=== PATIENT | male | born 1945 | race Caucasian/White ===

== ENCOUNTER 2019-09-09 09:05 | Emergency (ER) | payer MEDICARE, OTHER ==
[~2019-09-09] VITALS: Ht 175.2 cm; Wt 91.8 kg
--- OUTSIDE RECORDS SUMMARY | 2019-09-09 09:21 | XMS REPORT | Continuity of Care Document ---
Author Organization Unknown Address Unknown Phone Unavailable Allergies There is no data. Medications There is no data. Problems There is no data. Procedures There is no data. Results Test Result Range A1C - 12/02/18 08:18 HEMOGLOBIN A1c 5.9 % of total Hgb <5.7 A1C - 07/07/19 12:10 HEMOGLOBIN A1c 5.9 % of total Hgb <5.7 CMP - 08/17/19 08:23 GLUCOSE 94 mg/dL 65-99 UREA NITROGEN (BUN) 25 mg/dL 7-25 CREATININE 1.44 mg/dL 0.70-1.18 eGFR NON-AFR. CONGOLESE 48 mL/min/1.73m2 > OR = 60 eGFR 56 mL/min/1.73m2 > OR = 60 BUN/CREATININE RATIO 17 (calc) 6-22 SODIUM 134 mmol/L 135-146 POTASSIUM 4.3 mmol/L 3.5-5.3 CHLORIDE 98 mmol/L 98-110 CARBON DIOXIDE 27 mmol/L 20-32 CALCIUM 9.6 mg/dL 8.6-10.3 PROTEIN, TOTAL 7.0 g/dL 6.1-8.1 ALBUMIN 4.1 g/dL 3.6-5.1 GLOBULIN 2.9 g/dL (calc) 1.9-3.7 ALBUMIN/GLOBULIN RATIO 1.4 (calc) 1.0-2. 5 BILIRUBIN, TOTAL 1.8 mg/dL 0.2-1.2 ALKALINE PHOSPHATASE 71 U/L 35-144 AST 17 U/L 10-35 ALT 15 U/L 9-46 Encounters ACCT No. Visit Date/Time Discharge Status Pt. Type Provider Facility Loc./Unit Complaint [id number] 08/17/2019 07:30:00 08/17/2019 23:59: 59 CLS Outpatient SELF, THONG GRADY JENNA CAMPOS [facility] [id number] 08/17/2019 07:30:00 Document Registration [id number] 07/07/2019 10:30:00 Document Registration [id number] 12/02/2018 08:00:00 Document Registration
--- NOTE | 2019-09-09 09:31 | ED General ---
General Chief Complaint: Dizziness/Syncope Stated Complaint: PRE-SYNCOPAL EPISODE History of Present Illness Date Seen by Provider: Sep 09, 2019 Time Seen by Provider: 09:20 Initial Comments 73-year-old male presents with "dizziness" patient reports since around 5 AM this morning he is had 4 episodes of dizziness. They felt like he was in a pass out. Patient denies any fevers chills, ringing of his ears, chest pain. The episodes are brief. He has never had anything like this before. He does not have any focal deficits when they present. He does report his vision gets a little off during the episodes. No nausea vomiting. Allergies and Home Medications Allergies Coded Allergies: meperidine (Verified Allergy, Unknown, 09/09/19) Home Medications Nitrofurantoin Macrocrystal 100 Mg Capsule, 100 MG PO BID Prescribed by: NIXON LUGO on 09/09/19 1109 Patient Home Medication List Home Medication List Reviewed: Yes Review of Systems Review of Systems Constitutional: No chills; dizziness; No fever Respiratory: No cough, No short of breath Cardiovascular: No chest pain, No palpitations Gastrointestinal: No diarrhea, No nausea, No vomiting Musculoskeletal: no symptoms reported Skin: no symptoms reported Psychiatric/Neurological: No Symptoms Reported Past Zrkyadw-Jjbatl-Tfnykk Hx Past Med/Social Hx: Reviewed Nursing Past Med/Soc Hx Patient Social History Recent Foreign Travel: No Contact w/Someone Who Travel: No Physical Exam Vital Signs Vital Signs - First Documented 09/09/19 09:31 Temp 36.1 Pulse 60 Resp 20 B/P (MAP) 139/70 (93) Pulse Ox 96 O2 Delivery Room Air Capillary Refill : Height, Weight, BMI Height: '" Weight: lbs. oz. kg; BMI Method: General Appearance: No Apparent Distress, WD/WN HEENT: PERRL/EOMI, Normal ENT Inspection Neck: Non Tender, Supple Respiratory: Chest Non Tender, Lungs Clear, Normal Breath Sounds Cardiovascular: Regular Rate, Rhythm, No Edema Gastrointestinal: Non Tender, Soft Back: Normal Inspection, No CVA Tenderness, No Vertebral Tenderness Neurologic/Psychiatric: Alert, No Motor/Sensory Deficits, Normal Mood/Affect, it telecom technician II-XII Norm as Tested Skin: Normal Color, Warm/Dry Lymphatic: No Adenopathy Progress/Results/Core Measures Suspected Sepsis SIRS Temperature: Pulse: Respiratory Rate: Laboratory Tests 09/09/19 09:25: White Blood Count 7.2 Blood Pressure / Mean: Laboratory Tests 09/09/19 09:25: Creatinine 1.32H, Platelet Count 127L, Total Bilirubin 1.4H Results/Orders Lab Results Laboratory Tests Test 09/09/19 09:25 09/09/19 10:05 Range/Units White Blood Count 7.2 4.3-11.0 10^3/uL Red Blood Count 3.56 L 4.35-5.85 10^6/uL Hemoglobin 10.5 L 13.3-17.7 G/DL Hematocrit 32 L 40-54 % Mean Corpuscular Volume 90 80-99 FL Mean Corpuscular Hemoglobin 29 25-34 PG Mean Corpuscular Hemoglobin Concent 33 32-36 G/DL Red Cell Distribution Width 12.4 10.0-14.5 % Platelet Count 127 L 130-400 10^3/uL Mean Platelet Volume 11.6 H 7.4-10.4 FL Neutrophils (%) (Auto) 69 42-75 % Lymphocytes (%) (Auto) 18 12-44 % Monocytes (%) (Auto) 10 0-12 % Eosinophils (%) (Auto) 2 0-10 % Basophils (%) (Auto) 1 0-10 % Neutrophils # (Auto) 4.9 1.8-7.8 X 10^3 Lymphocytes # (Auto) 1.3 1.0-4.0 X 10^3 Monocytes # (Auto) 0.7 0.0-1.0 X 10^3 Eosinophils # (Auto) 0.1 0.0-0.3 10^3/uL Basophils # (Auto) 0.1 0.0-0.1 10^3/uL Sodium Level 135 135-145 MMOL/L Potassium Level 4.0 3.6-5.0 MMOL/L Chloride Level 97 L 98-107 MMOL/L Carbon Dioxide Level 22 21-32 MMOL/L Anion Gap 16 H 5-14 MMOL/L Blood Urea Nitrogen 29 H 7-18 MG/DL Creatinine 1.32 H 0.60-1.30 MG/DL Estimat Glomerular Filtration Rate 53 BUN/Creatinine Ratio 22 Glucose Level 116 H 70-105 MG/DL Calcium Level 8.9 8.5-10.1 MG/DL Corrected Calcium 9.0 8.5-10.1 MG/DL Total Bilirubin 1.4 H 0.1-1.0 MG/DL Aspartate Amino Transf (AST/SGOT) 25 5-34 U/L Alanine Aminotransferase (ALT/SGPT) 17 0-55 U/L Alkaline Phosphatase 70 40-136 U/L Troponin I < 0.30 <0.30 NG/ML Total Protein 7.2 6.4-8.2 GM/DL Albumin 3.9 3.2-4.5 GM/DL Urine Color YELLOW Urine Clarity CLEAR Urine pH 7.5 5-9 Urine Specific [place] 1.020 1.016-1.022 Urine Protein NEGATIVE NEGATIVE Urine Glucose (UA) NEGATIVE NEGATIVE Urine Ketones NEGATIVE NEGATIVE Urine Nitrite NEGATIVE NEGATIVE Urine Bilirubin NEGATIVE NEGATIVE Urine Urobilinogen 1.0 < = 1.0 MG/DL Urine Leukocyte Esterase TRACE H NEGATIVE Urine RBC (Auto) NEGATIVE NEGATIVE Urine RBC 0-2 /HPF Urine WBC 5-10 H /HPF Urine Squamous Epithelial Cells 0-2 /HPF Urine Crystals NONE /LPF Urine Bacteria NEGATIVE /HPF Urine Casts NONE /LPF Urine Mucus SMALL H /LPF Urine Culture Indicated YES My Orders Orders - LUGO,NIXON L DO Cbc With Automated Diff (09/09/19:32) Protime With Inr (09/09/19:32) Partial Thromboplastin Time (09/09/19:32) Comprehensive Metabolic Panel (09/09/19:32) Troponin I Fs (09/09/19:32) Ua Culture If Indicated (09/09/19:32) Chest 1 View Ap/Pa Only (09/09/19:32) Ekg Tracing (09/09/19:32) Accucheck Stat ONCE (09/09/19:32) Ed Iv/Invasive Line Start (09/09/19 09:32) Vital Signs Stroke Patient Q15M (09/09/19 09:32) Ct Head Wo-R/O Stroke (09/09/19 09:32) Intake & Output 06,14,22 (09/09/19 09:32) Monitor-Rhythm Ecg Trace Only (09/09/19 09:32) Dysphagia Screening Tool (09/09/19 09:32) Ed Iv/Invasive Line Start (09/09/19 10:03) Ns Iv 500 Ml (Sodium Chloride 0.9%) (3/18/20 10:03) Urine Culture (09/09/19 10:05) Medications Given in ED Current Medications Medications Dose Ordered Sig/José Miguel Route Start Time Stop Time Status Last Admin Dose Admin Sodium Chloride 500 ml @ 0 mls/hr Q0M ONCE IV 09/09/19 10:03 09/09/19 10:04 DC 09/09/19 10:12 0 MLS/HR Vital Signs/I&O 09/09/19 09:31 Temp 36.1 Pulse 60 Resp 20 B/P (MAP) 139/70 (93) Pulse Ox 96 O2 Delivery Room Air Capillary Refill : Progress Note : Time: 11:11 Progress Note Patient with some mild dehydration and urine consistent with a urinary tract infection. I did discuss with family and patient concerns for a possible cerebellar stroke. I did discuss with them are rare but they do present with just dizziness. Patient was offered further workup and admission. At this time he chose to treat the urinary tract infection will drink plenty of fluids. If symptoms continue to worsen or return they will return to the ER for further evaluation. I did discuss with him the need to follow-up with their outpatient primary care provider for patient TIA/stroke workup as a precaution which they voiced understanding. He will be discharged home in stable condition. ECG EKG : EKG Time: 09:10 Rate: 55 Rhythm: S.Bryant Intervals: MI (221 - prolonged ) ECG Comparisson: Changed Comment slight increase in MI otherwise unchanged Diagnostic Imaging Comments NAME: [facility] REC#: [id number] PT STATUS: REG ER : 1945 PHYSICIAN: NIXON LUOG DO ADMIT DATE: 09/09/19/ER FS Draft Date of Exam:09/09/19 CT HEAD WO-R/O STROKE PROCEDURE: CT head wo r/o stroke. TECHNIQUE: Multiple contiguous axial images were obtained through the brain without the use of intravenous contrast. Auto Exposure Controls were utilized during the CT exam to meet ALARA standards for radiation dose reduction. INDICATION: Lightheadedness and near syncope. No prior studies are available for comparison. Ventricles and sulci are within normal limits. No sulcal effacement or midline shift is identified. No acute intra-axial or extra-axial hemorrhage is detected. Cisterns are patent. Visualized paranasal sinuses are clear. IMPRESSION: No acute intracranial process is detected NAME: [facility] REC#: [id number] PT STATUS: REG ER : 1945 PHYSICIAN: NIXON LUGO DO ADMIT DATE: 09/09/19/ER FS Draft Date of Exam:09/09/19 CHEST 1 VIEW AP/PA ONLY Indication: Lightheadedness. Time of exam 9:47 AM No prior studies are available for comparison. The heart size is normal. The pulmonary vascularity is unremarkable. The lungs are clear. No infiltrate, effusion or pneumothorax is detected. Impression: No acute cardiopulmonary process is detected. Departure Impression Primary Impression: Dizziness Additional Impression: Cystitis Disposition: 01 HOME, SELF-CARE Condition: Stable Departure-Patient Inst. Referrals: THONG TOVAR MD (PCP/Family) Primary Care Physician Patient Instructions: Acute Cystitis (DC), Vertigo (a Type of Dizziness) (DC) Add. Discharge Instructions: Return to the ER if any concerns. Drink plenty of fluids, take medication as prescribed Follow-up with your primary care provider in 2-3 days for further outpatient evaluation Emergency department focuses on treating and ruling out life-threatening di seases. Whenever possible, a diagnosis is given. However, most patients are given an impression based on their history, physical exam, and workup during your brief time in the ER. Information about probable diagnosis and other educational material has been provided. Please take the time to read and understand this information. It is very important that you follow up with a physician as discussed during the visit today. Failure to adhere to your follow-up instructions may lead to severe disability, injury, or so please make sure to keep your appointments or obtain one as requested. Please keep in mind the emergency department is not designed to your primary care or "family doctor" and nonurgent issues are best evaluated by an outpatient physician All discharge instructions reviewed with patient and/or family. Voiced understanding. Scripts Nitrofurantoin Macrocrystal (Nitrofurantoin) 100 Mg Capsule 100 MG PO BID for 5 Days, #10 CAP 0 Refills Prov: NIXON LUGO DO 09/09/19 NIXON LUGO DO Sep 09, 2019 09:31
--- NOTE | 2019-09-09 09:56 | Diagnostic Imaging Report ---
PROCEDURE: CT head wo r/o stroke. TECHNIQUE: Multiple contiguous axial images were obtained through the brain without the use of intravenous contrast. Auto Exposure Controls were utilized during the CT exam to meet ALARA standards for radiation dose reduction. INDICATION: Lightheadedness and near syncope. No prior studies are available for comparison. Ventricles and sulci are within normal limits. No sulcal effacement or midline shift is identified. No acute intra-axial or extra-axial hemorrhage is detected. Cisterns are patent. Visualized paranasal sinuses are clear. IMPRESSION: No acute intracranial process is detected. Dictated by: Dictated on workstation # [id number]
--- NOTE | 2019-09-09 09:57 | Diagnostic Imaging Report ---
Indication: Lightheadedness. Time of exam 9:47 AM No prior studies are available for comparison. The heart size is normal. The pulmonary vascularity is unremarkable. The lungs are clear. No infiltrate, effusion or pneumothorax is detected. Impression: No acute cardiopulmonary process is detected. Dictated by: Dictated on workstation # [id number]
[2019-09-09 10:03] LABS: BASOPHILS # (AUTO) 0.1 10^3/uL (0.0-0.1); BASOPHILS % (AUTO) 1 % (0-10); EOSINOPHILS # (AUTO) 0.1 10^3/uL (0.0-0.3); EOSINOPHILS % (AUTO) 2 % (0-10); HEMATOCRIT 32 % (40-54); HEMOGLOBIN 10.5 G/DL (13.3-17.7); LYMPHOCYTES # (AUTO) 1.3 X 10^3 (1.0-4.0); LYMPHOCYTES % (AUTO) 18 % (12-44); MEAN CORPUSCULAR HEMOGLOBIN 29 PG (25-34); MEAN CORPUSCULAR HGB CONC 33 G/DL (32-36); MEAN CORPUSCULAR VOLUME 90 FL (80-99); MEAN PLATELET VOLUME 11.6 FL (7.4-10.4); MONOCYTES # (AUTO) 0.7 X 10^3 (0.0-1.0); MONOCYTES % (AUTO) 10 % (0-12); NEUTROPHILS # (AUTO) 4.9 X 10^3 (1.8-7.8); NEUTROPHILS % (AUTO) 69 % (42-75); PLATELET COUNT 127 10^3/uL (130-400); RED CELL DISTRIBUTION WIDTH 12.4 % (10.0-14.5); WHITE BLOOD COUNT 7.2 10^3/uL (4.3-11.0)
[2019-09-09] MEDS ORDERED: NS IV 500 ML 500 ML IV ONE (10:03)
[2019-09-09 10:21] LABS: ALANINE AMINOTRANSFERASE 17 U/L (0-55); ALBUMIN 3.9 GM/DL (3.2-4.5); ALKALINE PHOSPHATASE 70 U/L (40-136); BILIRUBIN,TOTAL 1.4 MG/DL (0.1-1.0); BUN/CREATININE RATIO 22; CALCIUM 8.9 MG/DL (8.5-10.1); CARBON DIOXIDE 22 MMOL/L (21-32); CHLORIDE 97 MMOL/L (98-107); CREATININE SERUM 1.32 MG/DL (0.60-1.30); GFR ESTIMATED 53; GLUCOSE 116 MG/DL (70-105); SODIUM 135 MMOL/L (135-145); TOTAL PROTEIN 7.2 GM/DL (6.4-8.2)
[2019-09-09 10:27] LABS: COLOR,URINE YELLOW
[2019-09-09 10:28] LABS: BACTERIA,URINE NEGATIVE /HPF; BILIRUBIN,URINE NEGATIVE (NEGATIVE); CLARITY,URINE CLEAR; GLUCOSE, URINE (UA) NEGATIVE (NEGATIVE); KETONES,URINE NEGATIVE (NEGATIVE); NITRITE,URINE NEGATIVE (NEGATIVE); PH,URINE 7.5 (5-9); PROTEIN,URINE NEGATIVE (NEGATIVE); RBC,URINE 0-2 /HPF; SQUAMOUS EPITHELIAL CELL,UR 0-2 /HPF
[2019-09-09 10:29] LABS: LEUKOCYTE ESTERASE ,URINE TRACE (NEGATIVE)
[2019-09-09] MEDS ORDERED: NITR100C PO (11:03)
[2019-09-09 11:10] VITALS: BP 128/73
== END 2019-09-09 11:10 | disposition home or self-care (01) ==
LOC: EDUNIT# 09:05 → ER FS 09:07
DX: R42 Dizziness and giddiness (principal); N30.90 Cystitis, unspecified without hematuria; Z88.5 Allergy status to narcotic agent
CPT/HCPCS: 36415; 70450; 71045; 80053; 81000; 84484; 85025; 87088; 93005; 93041

== ENCOUNTER → 2020-09-30 | Outpatient (CLI) | payer MEDICARE, OTHER ==
[~2020-09-30] MED LIST: NITR100C PO
--- NOTE | 2020-09-30 13:16 | Diagnostic Imaging Report ---
REASON FOR EXAM: Follow-up. History of renal stones. COMPARISON: 11/07/2011. TECHNIQUE: frontal supine view of the abdomen FINDINGS: The bowel gas pattern is nondistended. No large collection of free intraperitoneal air is seen. Scattered small amounts of gas and fecal material are present in the colon. Numerous phleboliths are seen in the pelvis. Lumbar fusion changes are seen from L4 to S1. IMPRESSION: 1. Multiple phleboliths in the pelvis. Urolithiases may also be present. If indicated, consider CT of the abdomen and pelvis to further evaluate. Dictated by: Dictated on workstation # [id number]
== END ==
LOC: LAB FS 11:54
PROVIDERS: ATTEND Urology
DX: Z12.5 Encounter for screening for malignant neoplasm of prostate (principal); Z87.442 Personal history of urinary calculi
CPT/HCPCS: 36415; 74018; 84153

== ENCOUNTER → 2020-10-17 | Outpatient (CLI) | payer MEDICARE, OTHER ==
--- NOTE | 2020-10-17 08:56 | Diagnostic Imaging Report ---
PROCEDURE: US Renal Bilateral. TECHNIQUE: Multiple real-time grayscale images were obtained over the kidneys in various projections bilaterally. INDICATION: Elevated creatinine levels Right and left kidneys measure 11 x 5.5 x 5.9 cm and 15 x 7.6 x 7.4 cm, respectively. Right kidney demonstrates an approximately 1 cm cyst in the midportion with an approximately 0.5 cm shadowing echogenic focus along the lower pole which may represent calculus. There is mild left hydronephrosis without left renal mass identified. Ureteric jets are seen in the bladder bilaterally. Urinary bladder is otherwise unremarkable in appearance. IMPRESSION: Mild left hydronephrosis with both ureteric jets confirmed. There may be an approximately 0.5 cm nonobstructing stone in the right kidney. Dictated by: Dictated on workstation # [id number]
== END ==
LOC: RAD FS 07:46
PROVIDERS: ATTEND Urology
DX: N13.30 Unspecified hydronephrosis (principal); R94.4 Abnormal results of kidney function studies; Z96.0 Presence of urogenital implants
CPT/HCPCS: 76770

== ENCOUNTER → 2020-10-24 | Outpatient (CLI) | payer MEDICARE, OTHER ==
--- NOTE | 2020-10-24 10:08 | Diagnostic Imaging Report ---
PROCEDURE: CT urinary tract, rule out kidney stone. TECHNIQUE: Multiple contiguous axial images were obtained through the abdomen and pelvis without the use of intravenous contrast. Auto Exposure Controls were utilized during the CT exam to meet ALARA standards for radiation dose reduction. INDICATION: Flank pain, history of stones. Elevated creatinine. EXAMINATION: CT abdomen and pelvis without contrast from 10/24/2020. FINDINGS: There is a large stone measuring 1 cm in the distal one 3rd of the left ureter with secondary severe left hydroureteronephrosis. Perinephric fat stranding is also noted. There is no nephrolithiasis on either side. There is a cystic lesion along the superior pole of the left kidney simple in appearance. Right kidney unremarkable. The nonopacified liver, spleen and pancreas as well as adrenal glands unremarkable. There is a small hiatal hernia. There is no ascites or free air. There is evidence of previous cholecystectomy. Diverticular disease is noted with no evidence for acute diverticulitis. Degenerative change and postoperative change noted throughout the lumbar spine atherosclerotic disease noted. There is wall thickening of the urinary bladder which could be due to incomplete distention versus cystitis. IMPRESSION: 1. 1 cm stone in the distal left ureter with secondary severe left hydroureteronephrosis. 2. Wall thickening of the urinary bladder, see above discussion. Other incidental findings as discussed above. Faxed to Dr. Cristian Price at 10:01 a.m. by cvb. Dictated by: Dictated on workstation # [id number]
== END ==
LOC: RAD FS 09:17
PROVIDERS: ATTEND Urology
DX: N20.1 Calculus of ureter (principal); N13.30 Unspecified hydronephrosis; N32.89 Other specified disorders of bladder; K44.9 Diaphragmatic hernia without obstruction or gangrene; M47.816 Spondylosis without myelopathy or radiculopathy, lumbar region; R94.4 Abnormal results of kidney function studies; I70.90 Unspecified atherosclerosis
CPT/HCPCS: 74176

== ENCOUNTER → 2020-11-04 | Outpatient (CLI) | payer MEDICARE, OTHER ==
--- NOTE | 2020-11-04 16:23 | Diagnostic Imaging Report ---
Abdomen at 2:07. Indication: Left nephrolithiasis A single supine view was obtained. The prior exam of 09/30/2020 raises the question of urolithiasis. The subsequent CT abdomen/pelvis exam performed on 10/24/2020 noted 1 cm stone in the distal left ureter. In the interval since the prior study a ureteral stent has been inserted on the left. The stent seems to be in good position. The previously described calculus is not evident. There is no other evidence for nephrolithiasis or urolithiasis. The postsurgical changes involving the lower lumbar spine seen previously are again evident. Impression: 1. In the interval since the prior exam, a ureteral stent has been inserted on the left. The stent seems to be in good position. 2. The obstructive calculus noted previously is no longer evident. Dictated by: Dictated on workstation # [id number]
== END ==
LOC: RAD FS 13:48
PROVIDERS: ATTEND Urology
DX: N20.0 Calculus of kidney (principal); Z96.0 Presence of urogenital implants
CPT/HCPCS: 74018

== ENCOUNTER → 2021-01-03 | Outpatient (CLI) | payer MEDICARE, OTHER ==
--- NOTE | 2021-01-03 17:17 | Diagnostic Imaging Report ---
INDICATION: Low back pain CORRELATED with a CT abdomen and pelvis performed 10/24/2020. That exam included sagittal and coronal reconstructions. FINDINGS: Interbody fusion at L3-L4, L4-L5 and L5-S1 appeared unchanged. There is posterior fusion with bipedicular screws and vertical rods at L4-L5 and L5-S1, unchanged. Grade 1 anterolisthesis of L5 on S1, 2 to 3 mm unchanged. Trace retrolisthesis of L2 on L3 of 2 to 3 mm unchanged. No suspicious red-hardware lucencies. No findings of loosening or of radiographic features of infection. Vertebral body statures are stable. No acute or suspect endplate irregularity. No findings of fusion or failure. IMPRESSION: Stable multilevel lower lumbar posterior and interbody fusion. Stable alignment. No acute osseous or hardware pathology. No change from correlative imaging Dictated by: Dictated on workstation # [id number]
== END ==
LOC: RAD FS 15:42
PROVIDERS: ATTEND Family Medicine
DX: M54.5 Low back pain (principal); M43.26 Fusion of spine, lumbar region
CPT/HCPCS: 72110

== ENCOUNTER → 2021-04-14 | Outpatient (CLI) | payer MEDICARE, OTHER | LOC: LAB FS 10:00 | PROVIDERS: ATTEND Orthopaedic Surgery Orthopaedic Surgery of the Spine | DX: Z01.812 Encounter for preprocedural laboratory examination (principal); Z20.822 Contact with and (suspected) exposure to COVID-19 | CPT/HCPCS: 87635 ==

== ENCOUNTER → 2022-11-02 | Outpatient (CLI) | payer MEDICARE, OTHER ==
--- NOTE | 2022-11-02 15:08 | Diagnostic Imaging Report ---
INDICATION: Bilateral flank pain. EXAMINATION: Abdominal view was obtained at 12:30 p.m. COMPARISON: 11/04/2020. FINDINGS: Extensive postop changes status post lumbosacral spine fusion are noted. The abdominal bowel gas pattern shows prominent stool in the right colon with no overt obstruction or ileus. There are surgical clips in the right upper quadrant. Previous left ureteral stent has been removed compared to the prior study. There are no definitive calcifications overlying the renal shadows. There are multiple pelvic phleboliths. IMPRESSION: Unremarkable bowel gas pattern with prominent stool in the right colon. Postoperative changes as above. No definite radiopaque calculus overlie the renal shadows. There are phleboliths in the pelvis. Dictated by: Dictated on workstation # [id number]
== END ==
LOC: RAD FS 12:18
PROVIDERS: ATTEND Urology
DX: I87.8 Other specified disorders of veins (principal); Z87.442 Personal history of urinary calculi
CPT/HCPCS: 74018

== ENCOUNTER → 2023-02-01 | Outpatient (CLI) | payer MEDICARE, OTHER ==
[~2023-02-01] MED LIST changes: +CATHETER FLUSH 10 ML SYR IV PRN; +HOLD METFORMIN - RECEIVED CONTRAST 20 ML VIAL IV SCH; +IOHEXOL 350 MG/ML 100 ML (OMNIPAQUE 350) VIAL IV ONE; +NS 100 ML (IVPB) BAG IV ONE
--- NOTE | 2023-02-01 08:49 | Diagnostic Imaging Report ---
PROCEDURE: CT neck soft tissue with contrast. TECHNIQUE: Multiple contiguous axial images were obtained through the neck after the administration of contrast. Auto Exposure Controls were utilized during the CT exam to meet ALARA standards for radiation dose reduction. INDICATION: Mass left side of the neck. COMPARISON: None. FINDINGS: 2.5 x 2.5 x 3.7 cm mildly enhancing lesion within the left neck likely represents a level of 2 of the lymph node and additional enlarged level left 5 lymph node measuring 1.4 x 1.7 cm. The parotid gland, submandibular gland, and thyroid glands are normal. The aortic arch and great vessels are patent. The carotid arteries. Mild atherosclerosis. No mass within the nasopharynx, oropharynx, larynx, or hypopharynx. Included lung apices are clear. Moderate multilevel degenerative changes in the cervical spine. IMPRESSION: 2.5 x 2.5 x 3.7 cm mildly enhancing lesion within the left neck most likely represents a pathologically enlarged level of 2A lymph node but may also represent a focal venous varix although considered less likely. Recommend soft tissue neck ultrasound confirmed that it is a solid mass rather than a venous pouch prior to biopsy or surgical resection. Additionally there is an enlarged left level 5 lymph node measuring 1.4 x 1.7 cm. Dictated by: Dictated on workstation # [id number]
== END ==
LOC: RAD FS 07:45
PROVIDERS: ATTEND Otolaryngology Otolaryngology/Facial Plastic Surgery
DX: R59.0 Localized enlarged lymph nodes (principal)
CPT/HCPCS: 70491; Q9967

== ENCOUNTER → 2023-02-12 | Outpatient (CLI) | payer MEDICARE, OTHER ==
[~2023-02-12] MED LIST changes: -CATHETER FLUSH 10 ML SYR IV PRN; -HOLD METFORMIN - RECEIVED CONTRAST 20 ML VIAL IV SCH; -IOHEXOL 350 MG/ML 100 ML (OMNIPAQUE 350) VIAL IV ONE; -NS 100 ML (IVPB) BAG IV ONE
--- NOTE | 2023-02-12 20:22 | Diagnostic Imaging Report ---
INDICATION: Left neck masses. It is correlated with soft tissue neck CT contrast-enhanced 02/01/2023. FINDINGS: Dominant left neck mass solid and vascularized hypoechoic 4.2 x 2.6 x 3.3 cm is not substantially changed from the prior CT. IMPRESSION: Left neck mass is a solid vascularized lesion but is not reflective of a varicosity. Neoplasm suspected. This would be amenable to fine-needle percutaneous aspiration biopsy which could be done under sonography if image guidance is needed. Dictated by: Dictated on workstation # [id number]
== END ==
LOC: RAD FS 07:26
PROVIDERS: ATTEND Otolaryngology Otolaryngology/Facial Plastic Surgery
DX: R22.1 Localized swelling, mass and lump, neck (principal)
CPT/HCPCS: 76536

== ENCOUNTER → 2023-02-18 | Outpatient (CLI) | payer MEDICARE, OTHER ==
[~2023-02-18] VITALS: Ht 175.3 cm; Wt 90.7 kg
[~2023-02-18] MED LIST changes: +LIDOCAINE 1% INJ 10 ML VIAL INJ ONE; +LIDOCAINE 1% INJ 10 ML VIAL ONE
--- NOTE | 2023-02-18 17:31 | Diagnostic Imaging Report ---
INDICATION: Left neck mass. Patient presents for ultrasound-guided core biopsy. Patient was brought to the procedure room, placed on table in the [id number] decubitus position. Ultrasound imaging of the left neck was performed to evaluate appropriate entry site. The left neck was then prepped and draped in usual sterile fashion. Small amount of 1% lidocaine was utilized for local anesthesia. A total of 4 core biopsies were obtained of the solid mass in the left neck utilizing the 18-gauge Temno needle. One sample will be sent for flow cytometry. Hemostasis was obtained. Patient tolerated the procedure well and left the department in stable condition. IMPRESSION: Successful ultrasound-guided core biopsy of the solid left neck mass. Pathology results are currently pending. Dictated by: Dictated on workstation # [id number]
== END ==
LOC: RAD 13:37
PROVIDERS: ATTEND Otolaryngology Otolaryngology/Facial Plastic Surgery
DX: R22.1 Localized swelling, mass and lump, neck (principal)
CPT/HCPCS: 76942

== ENCOUNTER 2023-03-19 12:51 | Outpatient (RCR) | payer MEDICARE, OTHER ==
[~2023-03-19 12:51] MED LIST changes: -LIDOCAINE 1% INJ 10 ML VIAL INJ ONE; -LIDOCAINE 1% INJ 10 ML VIAL ONE
== END 2023-03-23 | disposition home or self-care (01) ==
LOC: ONC 12:51
PROVIDERS: ATTEND Internal Medicine Hematology & Oncology
DX: C76.0 Malignant neoplasm of head, face and neck (principal)
CPT/HCPCS: 99204

== ENCOUNTER 2023-04-19 09:11 | Outpatient (RCR) | payer MEDICARE, OTHER | END 2023-04-23 | disposition home or self-care (01) | LOC: ONC 09:11 | PROVIDERS: ATTEND Internal Medicine Hematology & Oncology | DX: Z51.0 Encounter for antineoplastic radiation therapy (principal); C76.0 Malignant neoplasm of head, face and neck | CPT/HCPCS: 77300; 77301; 77334; 77338; 99205 ==

== ENCOUNTER → 2023-05-23 | Outpatient (RCR) | payer MEDICARE, OTHER | END | disposition home or self-care (01) | LOC: ONC 04-24 09:49 | PROVIDERS: ATTEND Internal Medicine Hematology & Oncology | DX: Z51.0 Encounter for antineoplastic radiation therapy (principal); C76.0 Malignant neoplasm of head, face and neck | CPT/HCPCS: 77336; 77386 ==